=== PATIENT | female | born 1945 | race Caucasian/White ===

== ENCOUNTER → 2016-11-12 | Outpatient (CLI) | payer MEDICARE, BC ==
--- NOTE | ~2016-11-12 | MY29 ---
[facility] A Service of [facility] RADIOLOGY TEXT RESULTS PATIENT: LEN OLVERA LOCATION: [facility] : 47 UNIT #: [id number] AGE: [address]: Radha Holder APRN SEX: F ORDER DR: [id number] [facility] [address] [place], [place] [address] [id number] O MR#: [id number] Acc #: [id number] NAME: LNE OLVERA : 1945 SEX: F STUDY DATE/TIME: 11/12/2016 9:54 UNIT: [facility] ROOM: STUDY DESCRIPTION: MY VIDYA SCREENING W/ CAD BILAT Attending Physician: Radha Holder A.P.R.N. Referring Physician: Radha Holder A.P.R.N. Ordering Physician: Radha Holder A.P.R.N. Primary Care Physician: Radha Holder A.P.R.N. MEDICAL IMAGING REPORT This report is preliminary unless electronic signature is present EXAM Bilateral digital screening mammogram with CAD 11/12/2016 INDICATIONS 71-year-old female for routine screening. No reported problems; no personal history of breast cancer or family history of breast cancer. No surgeries. TECHNIQUE CC and MLO views of the breasts were obtained and reviewed with an approved CAD device COMPARISON 11/09/2015, 11/06/2014, 11/02/2013 FINDINGS Breast parenchyma is composed of scattered fibroglandular densities. The pattern is unchanged. There is no new dominant nodule mass or suspicious clustered microcalcifications. IMPRESSION Negative screening mammogram; 1 year followup recommended. Patient's over the age of 40 are entered into a reminder system with target due date for the next mammogram. A result letter will be sent to the patient. BIRADS: 1 Negative Dictated by... Roly Corado M.D. [facility] A Service [facility] RADIOLOGY TEXT RESULTS PATIENT: LEN OLVERA LOCATION: [facility] : 47 UNIT #: [id number] AGE: [address]: Radha Holder APRN SEX: F ORDER DR: THIS IS AN ELECTRONICALLY VERIFIED REPORT Roly Corado M.D. at 11/12/2016 4:24 PM CLIVE/brian TD: 11/12/2016 13:20 JOB #: [id number] MEDICAL IMAGING REPORT Page 1 of 1 COPY
== END | disposition home or self-care (01) ==
LOC: CWCC 09:08
DX: Z12.31 Encounter for screening mammogram for malignant neoplasm of breast (principal)
CPT/HCPCS: G0202